=== PATIENT | male | born 1980 | race Hispanic/Latino ===

== ENCOUNTER 2017-11-09 11:12 | Emergency (ER) | payer MEDICARE ==
[~2017-11-09 11:12] MED LIST: CARV25TA PO; CIPR-279 PO; DIGO0.12 PO; INSLAN SQ; ISOS10TA8 PO; LISI40TA4 PO; PANT40TA25 PO; PHOSLOC PO; SEVE800T7 PO; SIMV5TAB6 PO
[2017-11-09] MEDS ORDERED: ACETAMINOPHEN 325 MG TAB ONE (12:42)
== END 2017-11-09 14:27 | disposition home or self-care (01) ==
LOC: EDH 11:12
DX: A07.0 Balantidiasis (principal); I12.0 Hypertensive chronic kidney disease with stage 5 chronic kidney disease or end stage renal disease; N18.6 End stage renal disease; E11.22 Type 2 diabetes mellitus with diabetic chronic kidney disease; Z79.4 Long term (current) use of insulin; Z89.412 Acquired absence of left great toe; Z88.8 Allergy status to other drugs, medicaments and biological substances; Z72.0 Tobacco use
CPT/HCPCS: 36415; 86592

== ENCOUNTER 2017-11-18 21:30 | Emergency (ER) | payer MEDICARE ==
[2017-11-18] MEDS ORDERED: ACETAMINOPHEN 325 MG TAB ONE (22:29)
[2017-11-18] MEDS ORDERED: AMOXICILLIN/POTASSIUM CLAV 875-125 TABLET PO ONE (22:29)
[2017-11-18] MEDS ORDERED: TRAMADOL HCL 50 MG TABLET ONE (22:29)
== END 2017-11-18 23:25 | disposition home or self-care (01) ==
LOC: EDH 21:30
DX: K02.7 Dental root caries (principal); K04.7 Periapical abscess without sinus; I12.0 Hypertensive chronic kidney disease with stage 5 chronic kidney disease or end stage renal disease; E11.22 Type 2 diabetes mellitus with diabetic chronic kidney disease; N18.6 End stage renal disease; Z98.890 Other specified postprocedural states; Z88.8 Allergy status to other drugs, medicaments and biological substances; Z72.0 Tobacco use
CPT/HCPCS: 82948